=== PATIENT | male | born 1950 | race Caucasian/White ===

== ENCOUNTER 2017-02-14 19:04 | Emergency (ER) | payer SELFPAY ==
[~2017-02-14] VITALS: Ht 182.9 cm; Wt 83.9 kg
--- NOTE | 2017-02-14 20:27 | NUR ---
Patient discharged to home in stable conditon. Written and verbal after care instructions given. Patient verbalizes understanding of instructions. Ambulated from ER with stable gait, patient will be driven home by his friend who is awaiting outside the ER in a private vehicle. Patient is awake,, alert, oriented x 4. Noted with stable gait, appropriate mentation. Ambulated from Er with stable gait
[2017-02-14 20:31] VITALS: BP 117/75
== END 2017-02-14 20:31 | disposition home or self-care (01) ==
LOC: ER 19:05
DX: F10.129 Alcohol abuse with intoxication, unspecified (principal); J45.909 Unspecified asthma, uncomplicated
CPT/HCPCS: A4663

== ENCOUNTER 2018-11-04 11:49 | Emergency (ER) | payer MEDICARE ==
[~2018-11-04] VITALS: Ht 182.9 cm; Wt 104.3 kg
--- NOTE | 2018-11-04 12:06 | NUR ---
Dr Aragon at the bedside for MSE.
--- NOTE | 2018-11-04 12:47 | NUR ---
dPatient discharged to home in stable conditon. Written and verbal after care instructions given. Patient verbalizes understanding of instructions.
[2018-11-04 12:48] VITALS: BP 128/94
== END 2018-11-04 12:49 | disposition home or self-care (01) ==
LOC: ER 11:49
DX: K59.00 Constipation, unspecified (principal); K64.9 Unspecified hemorrhoids; J45.909 Unspecified asthma, uncomplicated
CPT/HCPCS: 74021; A4663

== ENCOUNTER 2018-12-11 21:45 | Emergency (ER) | payer MEDICARE, BC ==
[~2018-12-11] VITALS: Ht 177.8 cm; Wt 88.5 kg
--- NOTE | 2018-12-11 21:50 | NUR ---
Dr. Murguia at bedside for MSE.
--- NOTE | 2018-12-11 21:56 | NUR ---
[employer] at bedside.
[2018-12-11] MEDS ORDERED: ATIVAN (22:01)
[2018-12-11] MEDS ORDERED: LIPITOR (22:01)
[2018-12-11] MEDS ORDERED: TOPAMAX (22:01)
[2018-12-11] MEDS ORDERED: TRAZODONE (22:01)
[2018-12-11] MEDS ORDERED: ZANTAC (22:01)
[2018-12-11] MEDS ORDERED: QUET25TA3 (22:01)
[2018-12-11] MEDS ORDERED: CLONIDINE (22:01)
[2018-12-11 22:13] LABS: BASOPHILS # (AUTO) 0.1 K/uL (0.0-8.0); BASOPHILS % (AUTO) 0.8 % (0.0-2.0); EOSINOPHILS # (AUTO) 0.3 K/uL (0.0-0.7); EOSINOPHILS % (AUTO) 3.6 % (0.0-7.0); HEMATOCRIT 37.4 % (36.7-47.1); LYMPHOCYTES # (AUTO) 1.7 K/uL (20.0-40.0); LYMPHOCYTES % (AUTO) 21.7 % (20.5-51.5); MEAN CORPUSCULAR HEMOGLOBIN 28.3 uug (23.8-33.4); MEAN CORPUSCULAR HGB CONC 32 g/dL (32.5-36.3); MEAN CORPUSCULAR VOLUME 87.8 fL (73.0-96.2); MONOCYTES # (AUTO) 1.4 K/uL (2.0-10.0); MONOCYTES % (AUTO) 17.8 % (0.0-11.0); NEUTROPHILS # (AUTO) 4.3 K/uL (1.8-8.9); NEUTROPHILS % (AUTO) 56.1 % (38.5-71.5); PLATELET COUNT (AUTO) 387 K/uL (152-348); RED BLOOD CELL COUNT(AUTO) 4.26 MIL/uL (4.06-5.63); WHITE BLOOD COUNT (AUTO) 7.7 K/uL (3.6-10.2)
--- NOTE | 2018-12-11 22:14 | NUR ---
Pt out of ER for CT.
[2018-12-11 22:21] LABS: CARBON DIOXIDE 23 mmol/L (21-32); CHLORIDE 103 mmol/L (98-107); CREATININE 1.3 mg/dL (0.6-1.3); GLUCOSE 103 mg/dL (74-106); POTASSIUM 3.2 mmol/L (3.5-5.1); UREA NITROGEN, BLOOD 8 mg/dL (7-18)
[2018-12-11 22:26] LABS: ALANINE AMINOTRANSFERASE 34 U/L (16-63); ALKALINE PHOSPHATASE 145 U/L (50-136); ASPARTATE AMINOTRANSFERASE 30 U/L (15-37); BILIRUBIN,DIRECT 0.2 mg/dL (0.0-0.2); BILIRUBIN,TOTAL 0.7 mg/dL (0.2-1.0)
[2018-12-11 22:27] LABS: ACETAMINOPHEN < 10.0 ug/mL (10-30); ETHANOL 101 MG/DL (0-0)
[2018-12-11] MEDS ORDERED: ALBUTEROL SULFATE 2.5 MG/3 ML NEBU NEB ONE (22:30)
--- NOTE | 2018-12-11 22:34 | NUR ---
Pt back to ER from CT.
[2018-12-11] MEDS ORDERED: POTASSIUM CHLORIDE 20 MEQ TAB.PRT.SR PO ONE (23:00)
[2018-12-11 23:01] LABS: LYMPHOCYTES % (MANUAL) 12 % (20-40); MONOCYTES % (MANUAL) 10 % (2-10); NEUTROPHILS % (MANUAL) 78 % (42-75)
[2018-12-11] MEDS ORDERED: POTASSIUM CHLORIDE 20 MEQ TAB.PRT.SR ONE (23:02)
[2018-12-11 23:05] LABS: THYROID STIMULATING HORMONE 6.539 mIU/mL (0.358-3.740)
--- NOTE | 2018-12-12 00:06 | NUR ---
Fabien Birmingham LCSW arrived to ER for psych evaluation.
--- NOTE | 2018-12-12 00:30 | NUR ---
Pt cleared by Fabien Birmingham LCSW. Called [employer]ist for a taxi voucher.
--- NOTE | 2018-12-12 00:37 | NUR ---
Patient discharged to home in stable conditon. Written and verbal after care instructions given. Patient verbalizes understanding of instructions. Pt out of ER with steady gait, no acute signs of distress, VSS, all belongings taken, provided with a taxi voucher, in waiting room waiting for ride.
[2018-12-12 00:39] VITALS: BP 117/70
== END 2018-12-12 00:53 | disposition home or self-care (01) ==
LOC: ER 21:53
DX: F10.129 Alcohol abuse with intoxication, unspecified (principal); J45.909 Unspecified asthma, uncomplicated; Z79.899 Other long term (current) drug therapy; Y90.5 Blood alcohol level of 100-119 mg/100 ml
CPT/HCPCS: 36415; 70450; 80048; 80076; 82140; 84443; 84484; 85007; 85025; 85730; 93005; 99284; G0480 ×2; G0481; 70030-TC; A4663

== ENCOUNTER 2019-01-06 12:08 | Emergency (ER) | payer MEDICARE, BC ==
[~2019-01-06] VITALS: Ht 177.8 cm; Wt 88.5 kg
[~2019-01-06 12:08] MED LIST: ATIVAN; CLONIDINE; LIPITOR; QUET25TA3; TOPAMAX; TRAZODONE; ZANTAC
[2019-01-06] MEDS ORDERED: IV NORMAL SALINE 1000 ML BAG IV ONE (12:15)
--- NOTE | 2019-01-06 12:15 | NUR ---
CHERYL johnson from restaurant for alcohol intoxication. He is awake and alert. He is slurring his speech. He is laying in the gurney, siderails raised.
--- NOTE | 2019-01-06 12:56 | NUR ---
IV removed by patient. Catheter intact and site benign. Pressure and 4x4 gauze applied to site. No bleeding noted.
--- NOTE | 2019-01-06 13:50 | NUR ---
Pt ambulated to nursing station and stated he is feeling better and wants to go home. Pt was re-evaluated by in room 3. Pt is a/o x 3.
--- NOTE | 2019-01-06 13:59 | NUR ---
Patient discharged to home in stable conditon. Written and verbal after care instructions given. Patient verbalizes understanding of instructions. Pt ambulated out of ER with steady gait.
[2019-01-06 14:01] VITALS: BP 132/74
== END 2019-01-06 14:02 | disposition home or self-care (01) ==
LOC: ER 12:08
DX: F10.129 Alcohol abuse with intoxication, unspecified (principal); J45.909 Unspecified asthma, uncomplicated; Z79.899 Other long term (current) drug therapy; Y90.7 Blood alcohol level of 200-239 mg/100 ml
CPT/HCPCS: 36415; 99283; G0480; A4663; J7030

== ENCOUNTER 2019-07-21 14:50 | Emergency (ER) | payer MEDICARE, BC ==
[~2019-07-21] VITALS: Ht 172.7 cm; Wt 99.8 kg
--- NOTE | 2019-07-21 14:55 | NUR ---
Dr. Vasquez here to see pt at bedside for MSE.
[2019-07-21] MEDS ORDERED: IV NORMAL SALINE 1000 ML BAG IV ONE ×2 (15:00)
[2019-07-21] MEDS ORDERED: levETIRAcetam IV 1,000 MG in IV DEXTROSE 5% 100 ML IV ONE (15:00)
[2019-07-21 15:17] LABS: BASOPHILS % (AUTO) 0.7 % (0.0-2.0); EOSINOPHILS % (AUTO) 0.2 % (0.0-7.0); HEMATOCRIT 28.8 % (36.7-47.1); HEMOGLOBIN 8.9 g/dL (12.5-16.3); LYMPHOCYTES # (AUTO) 1.1 K/uL (20.0-40.0); LYMPHOCYTES % (AUTO) 17.3 % (20.5-51.5); MEAN CORPUSCULAR HEMOGLOBIN 24.1 uug (23.8-33.4); MEAN CORPUSCULAR HGB CONC 31 g/dL (32.5-36.3); MEAN CORPUSCULAR VOLUME 77.9 fL (73.0-96.2); MONOCYTES # (AUTO) 0.2 K/uL (2.0-10.0); MONOCYTES % (AUTO) 3.2 % (0.0-11.0); NEUTROPHILS # (AUTO) 4.8 K/uL (1.8-8.9); NEUTROPHILS % (AUTO) 78.6 % (38.5-71.5); PLATELET COUNT (AUTO) 401 K/uL (152-348); WHITE BLOOD COUNT (AUTO) 6.2 K/uL (3.6-10.2)
[2019-07-21] MEDS ORDERED: levETIRAcetam 500 MG/5 ML VIAL IV ONE (15:27)
[2019-07-21 15:29] LABS: CARBON DIOXIDE 22 mmol/L (21-32); CHLORIDE 106 mmol/L (98-107); CREATININE 0.8 mg/dL (0.6-1.3); GLUCOSE 117 mg/dL (74-106); POTASSIUM 3.7 mmol/L (3.5-5.1); UREA NITROGEN, BLOOD 13 mg/dL (7-18)
[2019-07-21 15:34] LABS: ALANINE AMINOTRANSFERASE 20 U/L (16-63); ALKALINE PHOSPHATASE 90 U/L (50-136); ASPARTATE AMINOTRANSFERASE 11 U/L (15-37); BILIRUBIN,DIRECT 0.1 mg/dL (0.0-0.2); BILIRUBIN,TOTAL 0.2 mg/dL (0.2-1.0); CREATINE KINASE, TOTAL 56 U/L (39-308); TOTAL PROTEIN, SERUM 7.1 g/dL (6.4-8.2); VALPROIC ACID < 3 ug/mL (50-100)
[2019-07-21 15:37] LABS: ACETAMINOPHEN < 2.0 ug/mL (10-30)
--- NOTE | 2019-07-21 15:45 | NUR ---
[facility] completed.
--- NOTE | 2019-07-21 15:47 | NUR ---
Pt returned from CT. Pt stable and nad noted upon returning to the ER.
[2019-07-21 15:53] LABS: ETHANOL 343 MG/DL (0-0)
[2019-07-21] MEDS ORDERED: FOLIC ACID 5 MG/ML VIAL IV ONE (17:00)
[2019-07-21] MEDS ORDERED: LORAZEPAM 2 MG/1 ML VIAL IV ONE ×2 (17:00→17:45)
[2019-07-21] MEDS ORDERED: IV NORMAL SALINE 500 ML BAG IV ONE (17:00)
[2019-07-21] MEDS ORDERED: THIAMINE HCL 200 MG/2 ML VIAL IV ONE (17:00)
[2019-07-21] MEDS ORDERED: THIAMINE HCL 100 MG TABLET PO ONE (18:00)
[2019-07-21] MEDS ORDERED: FOLIC ACID 1 MG TABLET PO ONE (18:00)
[2019-07-21] MEDS ORDERED: MAGNESIUM SULFATE/D5W 100 ML IV SCH (18:30)
--- NOTE | 2019-07-21 19:01 | NUR ---
Full SBAR report given to tech ed teacher LEIDY Rosen.
[2019-07-21] MEDS ORDERED: MAGNESIUM SULFATE/D5W 100 ML ONE (19:14)
[2019-07-21 19:44] LABS: *BILIRUBIN,URIN NEGATIVE (NEGATIVE); *BLOOD, URINE NEGATIVE (NEGATIVE); *COLOR,URINE LIGHT YELLOW (YELLOW); *KETONES,URINE NEGATIVE (NEGATIVE); *UROBILINOGEN,URINE 0.2 E.U./dl (NORMAL); LEUKOCYTE ESTERASE ,URINE TRACE (NEGATIVE); NITRITE, URINE POSITIVE (NEGATIVE); PH,URINE 6.5 (5.0-8.0); UGLUCOSE NEGATIVE (NEGATIVE)
[2019-07-21 19:52] LABS: *AMPHETAMINE, URINE NEGATIVE (NEGATIVE); *BARBITURATE, URINE NEGATIVE (NEGATIVE); *CANNABINOID, URINE NEGATIVE (NEGATIVE); *COCCAINE, URINE NEGATIVE (NEGATIVE); *OPIATE, URINE NEGATIVE (NEGATIVE); *PHENCYCLIDINE SCREEN,URINE NEGATIVE (NEGATIVE)
[2019-07-21 19:54] LABS: *CLARITY,URINE HAZY (CLEAR)
[2019-07-21 19:55] LABS: BACTERIA,URINE MANY /HPF (NONE SEEN)
--- NOTE | 2019-07-21 22:30 | NUR ---
Patient discharged to home in stable condition. Written and verbal after care instructions given. Patient verbalizes understanding of instructions. Stressed follow up or return to ER for worsening s/s. Pt went home by yony. Ambulate with steady gait No signs of distress all belongings with patient Instructed patient not to drive. A/O x4. able to speak in complete sentences. follows command.
[2019-07-21 23:02] VITALS: BP 129/90
== END 2019-07-21 22:30 | disposition home or self-care (01) ==
LOC: EDBD 14:50 → ER 14:50 → MERGE 14:50 → ER 22:30
DX: F10.129 Alcohol abuse with intoxication, unspecified (principal); Y90.8 Blood alcohol level of 240 mg/100 ml or more; G93.89 Other specified disorders of brain; R40.2362 Coma scale, best motor response, obeys commands, at arrival to emergency department; R40.2142 Coma scale, eyes open, spontaneous, at arrival to emergency department; R40.2242 Coma scale, best verbal response, confused conversation, at arrival to emergency department; G40.909 Epilepsy, unspecified, not intractable, without status epilepticus; J45.909 Unspecified asthma, uncomplicated; F84.0 Autistic disorder; E83.51 Hypocalcemia; F90.9 Attention-deficit hyperactivity disorder, unspecified type; R05 Cough; I44.0 Atrioventricular block, first degree; R25.1 Tremor, unspecified
CPT/HCPCS: 36415; 70450; 71045; 80048; 80076; 80164; 80178; 80307 ×2; 80329; 81001; 82140; 82550; 82962; 83930; 84443; 84484; 85025; 85730; 87086; 87186; 93005; 96365; 96367; 96375; 96376; 99291; G0480; J1953; J2060 ×2; J3475; J7060; 70030-TC; J7030; J7040